=== PATIENT | female | born 1985 | race Two or more races ===

== ENCOUNTER 2021-02-18 16:23 | Emergency (ER) | payer MEDICAID ==
[~2021-02-18] VITALS: Ht 157.5 cm; Wt 63.5 kg
[2021-02-18] MEDS ORDERED: IBUPROFEN 800 MG TABLET PO ONE (17:30)
[2021-02-18] MEDS ORDERED: IBUPROFEN 800 MG TABLET ONE (18:04)
[2021-02-18] MEDS ORDERED: IBUP-1957 PO (18:10)
[2021-02-18] MEDS ORDERED: HYDR-3972 PO (18:10)
--- NOTE | 2021-02-18 18:15 | NUR ---
Patient discharged to home in stable condition. Written and verbal after care instructions given. Patient verbalizes understanding of instructions. Stressed follow up or return to ER for worsening s/s.
== END 2021-02-18 18:11 | disposition home or self-care (01) ==
LOC: ER 16:28
DX: S20.211A Contusion of right front wall of thorax, initial encounter (principal); W01.198A Fall on same level from slipping, tripping and stumbling with subsequent striking against other object, initial encounter; Y92.89 Other specified places as the place of occurrence of the external cause
CPT/HCPCS: 71046; A4663